=== PATIENT | male | born 1980 | race Caucasian/White ===

== ENCOUNTER → 2024-05-05 | Day surgery (SDC) | payer OTHER ==
[2024-04-28 11:00] VITALS: BP 127/74
[~2024-05-05] VITALS: Ht 188 cm; Wt 90.7 kg
[~2024-05-05] MED LIST: ATIVAN1 M1 PO; BUPIVACAINE HCL 30 ML VIAL IJ ONE; BUPIVACAINE LIPOSOME/PF 266 MG/20 ML VIAL IJ ONE; CATAPRES0.1 MG PO; CEFTRIAXONE SODIUM 2,000 MG VIAL IV ONE; DIBUCAINE 15 GM OINT..GM. TUBE RECTAL ONE; FOLIC ACID1 MG PO; HEARTBURN RELI150 M1 PO; HEMOSTATIC MATRIX 1 KIT KIT TOP ONE; METRONIDAZOLE/SODIUM CHLORIDE 500 MG/100 ML PIGGYBACK IV ONE; MORPHINE SULFATE 4 MG/ML VIAL IV ONE; OMEPRAZOLE20 M1 PO; POVIDONE-IODINE 118 ML BOTT TOP ONE; SEROQUEL50 MG; SEROQUEL50 MG PO; THIAMINE HCL100 MG PO; VITAMIN B-150 MG PO
== END | disposition home or self-care (01) ==
LOC: ADM 04-28 09:00 → CIR.AMB 06:52
PROVIDERS: ATTEND Colon & Rectal Surgery
DX: K64.2 Third degree hemorrhoids (principal); K64.4 Residual hemorrhoidal skin tags; K92.2 Gastrointestinal hemorrhage, unspecified; F41.9 Anxiety disorder, unspecified